=== PATIENT | female | born 1945 | race Hispanic/Latino ===

== ENCOUNTER → 2018-01-29 | Outpatient (CLI) | payer OTHER ==
--- NOTE | 2018-01-29 19:14 | Diagnostic Imaging Report ---
Bone Scan, three-phase Reason for exam: 72 F s/p fall 5 weeks ago with fracture left lower leg and right upper arm; now with stage 3 sacral ulcer. Patient is insulin-dependent diabetic Radiopharmaceutical: Tc-99m MDP 26 mCi Comparison: None Following intravenous administration of the radiopharmaceutical, dynamic flow and immediate blood pool images of the pelvis and hips followed by 3.5-hour delayed total body and selected spot images were obtained. Flow and blood pool images show symmetric distribution of tracer activity to the pelvis and hips without focal abnormality. No abnormal accumulation of tracer is seen in the pelvis or hips on the delayed images. Impression: No scan evidence of osteomyelitis in the pelvis or hips. Signed by: Dr. Reva Ag M.D. on 01/29/2018 7:11 PM
== END ==
LOC: NM 13:24
PROVIDERS: ATTEND Internal Medicine
DX: L89.153 Pressure ulcer of sacral region, stage 3 (principal)
CPT/HCPCS: 78315; A9503